=== PATIENT | male | born 1950 | race Caucasian/White ===

== ENCOUNTER 2018-09-03 14:41 | Outpatient (REF) | payer MEDICARE, SELFPAY ==
[2018-09-03 20:04] LABS: HCT 42.3 % (40.0-50.0); HGB 13.6 g/dL (13.5-17.5); Mean Corp. HGB Concentration 32.2 g/dL (32.0-36.0); Mean Corpuscular Hemoglobin 26.1 pg (27.0-33.0); Mean Platelet Volume 11.2 fL (8.0-11.0); Platelet Count 314 x1000/uL (130-400); RBC 5.22 m/cumm (4.50-6.00); RBC Distribution Width 14.7 % (11.8-14.1); White Blood Cell Count 10.12 k/cumm (4.4-10.8)
[2018-09-03 21:00] LABS: Anion Gap 9.7 mmol/L (3-11); BUN 27 mg/dL (7-18); CO2 26.3 mmol/L (21.0-32.0); CREATININE 1.42 mg/dL (0.70-1.30); Calcium 9.8 mg/dL (8.5-10.1); Chloride 106 mmol/L (98-107); Estimated GFR 49.73 (mL/min/1.73m2); Glucose 80 mg/dL (70-100); Potassium 4.4 mmol/L (3.5-5.1); Sodium 142 mmol/L (136-145); Vitamin B12 213 pg/mL (193-986)
[2018-09-05 15:17] LABS: Hepatitis C Ab w Rflx HCV PCR Negative (NEGAT)
== END 2018-09-03 15:01 ==
LOC: NCHCN 14:41
PROVIDERS: PCP Family Medicine; Visit Provider Family Medicine
DX: D51.0 Vitamin B12 deficiency anemia due to intrinsic factor deficiency (principal); I10 Essential (primary) hypertension; Z11.59 Encounter for screening for other viral diseases
CPT/HCPCS: 80048; 85027; 86803; 82607

== ENCOUNTER 2020-04-05 11:58 | Outpatient (REF) | payer MEDICARE, SELFPAY ==
--- NOTE | 2020-04-05 11:00 | SKI_PTH ---
PATIENT: Carlton Loredo LOC: [facility] U#:[id number] AGE/SX: 69/M ROOM: RE04/05/[address]: Carlton Severino : 1950 BED: DIS: 04/05/2020 SPEC #: [id number] RECD: 04/06/20 11:51 STATUS: MALAIKA GODWIN #: [id number] ROSELINE: 04/05/20 11:[address]: Carlton Severino DEPT: Surgical Specimen RECD BY: Nery Pena Tissues: 1 - SKIN BIOPSY(SHAVE/PUNCH) Procedures: SKIN LEVEL 4 Comments: [id number]
== END 2020-04-05 12:18 ==
LOC: NCHCN 11:58
PROVIDERS: PCP Family Medicine; Visit Provider Family Medicine
DX: L82.0 Inflamed seborrheic keratosis (principal)
CPT/HCPCS: 88305

== ENCOUNTER 2021-08-16 22:06 | Outpatient (REF) | payer MEDICARE, SELFPAY ==
[2021-08-16 21:56] LABS: HCT 43.3 % (40.0-50.0); MCH 25.7 pg (27.0-33.0); MCV 85.7 fL (80-95); MPV 11.5 fL (8.0-11.0); Platelet Count 285 10^3/uL (130-400); RBC 5.05 10^6/uL (4.36-5.78); RDW 14.6 % (11.8-14.1); RDW-SD 45.5 fL; WBC 7.45 10^3/uL (4.4-10.8)
[2021-08-16 22:41] LABS: ALT 23 U/L (16-63); AST 12 U/L (15-37); Albumin 3.5 g/dL (3.4-5.0); Alkaline Phosphatase 134 U/L (46-116); Anion Gap 10.4 mmol/L (3-11); BUN 25 mg/dL (7-18); Bilirubin, Total 0.4 mg/dL (0.2-1.0); CO2 23.6 mmol/L (21.0-32.0); CREATININE 1.5 mg/dL (0.70-1.30); Calcium 9.6 mg/dL (8.5-10.1); Chloride 110 mmol/L (98-107); Estimated GFR 46.27 (mL/min/1.73m2); Glucose 103 mg/dL (74-106); Potassium 4.5 mmol/L (3.5-5.1); Sodium 144 mmol/L (136-145); Total Protein 6.9 g/dL (6.4-8.2); Vitamin B12 102 pg/mL (193-986)
== END 2021-08-16 22:07 | disposition home or self-care (01) ==
LOC: NCHCN 22:06
PROVIDERS: PCP Family Medicine; Visit Provider Family Medicine
DX: D51.0 Vitamin B12 deficiency anemia due to intrinsic factor deficiency (principal); N28.9 Disorder of kidney and ureter, unspecified
CPT/HCPCS: 80053; 85027; 82607

== ENCOUNTER 2022-01-16 15:24 | Outpatient (REF) | payer MEDICARE, SELFPAY ==
[2022-01-16 18:55] LABS: Anion Gap 7.3 mmol/L (3-11); BUN 21 mg/dL (7-18); CO2 26.7 mmol/L (21.0-32.0); CREATININE 1.3 mg/dL (0.70-1.30); Calcium 9.4 mg/dL (8.5-10.1); Chloride 110 mmol/L (98-107); Estimated GFR 54.42 (mL/min/1.73m2); Glucose 72 mg/dL (74-106); Potassium 4.7 mmol/L (3.5-5.1); Sodium 144 mmol/L (136-145)
[2022-01-16 19:25] LABS: COMMENT (LAB VIEW ONLY) 147.79 mg/dL; PROTEIN 20.2 mg/dL; Prot/Crea Ur Ratio 0.13
[2022-01-16 19:53] LABS: Bilirubin Negative (Negative); Blood Negative (Negative); Clarity Clear (Clear); Glucose Negative (Negative); Ketones Negative (Negative); Leukocyte Esterase Negative (Negative); Nitrite Negative (Negative); Specific Gravity >= 1.030 (1.005-1.025); Urobilinogen 0.2 EU/dL (Up TO 0.2); pH 5.5 (5-8)
== END 2022-01-16 15:25 | disposition home or self-care (01) ==
LOC: NCHCN 15:24
PROVIDERS: PCP Family Medicine; Visit Provider Family Medicine
DX: N18.31 Chronic kidney disease, stage 3a (principal)
CPT/HCPCS: 80048; 81003; 82565; 84156

== ENCOUNTER 2022-07-16 15:10 | Outpatient (REF) | payer MEDICARE, SELFPAY ==
[2022-07-16 19:02] LABS: HCT 44.1 % (40.0-50.0); HGB 13.4 g/dL (13.5-17.5); MCH 25.4 pg (27.0-33.0); MCHC 30.4 % (32.0-36.0); MCV 84 fL (80-95); Platelet Count 280 10^3/uL (130-400); RBC 5.27 10^6/uL (4.36-5.78); RDW-SD 42.5 fL; WBC 8.86 10^3/uL (4.4-10.8)
[2022-07-16 19:40] LABS: Vitamin B12 386 pg/mL (193-986)
[2022-07-16 21:57] LABS: COMMENT (LAB VIEW ONLY) 210.65 mg/dL; PROTEIN 29.1 mg/dL; Prot/Crea Ur Ratio 0.13
== END 2022-07-16 15:11 | disposition home or self-care (01) ==
LOC: NCHCN 15:10
PROVIDERS: PCP Family Medicine; Visit Provider Family Medicine
DX: I10 Essential (primary) hypertension; N18.31 Chronic kidney disease, stage 3a; D51.0 Vitamin B12 deficiency anemia due to intrinsic factor deficiency
CPT/HCPCS: 85027; 82565; 82607; 84156

== ENCOUNTER 2023-05-20 15:10 | Outpatient (REF) | payer MEDICARE, SELFPAY ==
[2023-05-20 20:26] LABS: HCT 44.5 % (40.0-50.0); HGB 13.8 g/dL (13.5-17.5); MCH 25.9 pg (27.0-33.0); MCV 84 fL (80-95); MPV 11.1 fL (8.0-11.0); Platelet Count 271 10^3/uL (130-400); RBC 5.33 10^6/uL (4.36-5.78); RDW 14.6 % (11.8-14.1); WBC 7.27 10^3/uL (4.4-10.8)
[2023-05-20 21:29] LABS: Anion Gap 12.1 mmol/L (3-11); BUN 21 mg/dL (7-18); CO2 23.9 mmol/L (21.0-32.0); CREATININE 1.4 mg/dL (0.70-1.30); Calcium 10.1 mg/dL (8.5-10.1); Calculated LDL 98 mg/dL (<100); Chloride 104 mmol/L (98-107); Cholesterol 171 mg/dL (<200); Glucose 109 mg/dL (74-106); HDL Cholesterol 55 mg/dL (40-60); Potassium 3.9 mmol/L (3.5-5.1); Sodium 140 mmol/L (136-145); Triglyceride 91 mg/dL (<150); Vitamin B12 424 pg/mL (193-986)
[2023-05-20 21:53] LABS: Iron 40 ug/dL (65-175); Total Iron Binding Capacity 269 ug/dL (250-450); Transferrin Sat 15 % (20-55)
== END 2023-05-20 15:11 | disposition home or self-care (01) ==
LOC: NCHCN 15:10
PROVIDERS: PCP Family Medicine; Visit Provider Family Medicine
DX: N18.31 Chronic kidney disease, stage 3a (principal); D51.0 Vitamin B12 deficiency anemia due to intrinsic factor deficiency; I10 Essential (primary) hypertension; R79.89 Other specified abnormal findings of blood chemistry
CPT/HCPCS: 80048; 80061; 85027; 82607; 83540; 83550

== ENCOUNTER 2024-02-14 13:23 | Emergency (ER) | payer MEDICARE, SELFPAY ==
[2024-02-14 13:27] VITALS: BP 186/104; PULSE 60; RESP 16; TEMP 36.4; O2SAT 97
--- NOTE | 2024-02-14 14:19 | ED.GENADUL_ITS ---
Discharge Plan Disposition Patient Disposition: Home Discharge Details Clinical Impression: Acute left-sided low back pain Primary Care Provider: Carlton Severino ED Provider: Carlton Abarca Home Meds and New Rx's Prescriptions: New lidocaine [Lidoderm] 5 % adhesive patch,medicated 1 patch topical DAILY Qty: 15 0RF Rx Instructions: leave on most painful area for up to 12 hrs diazepam 5 mg tablet 5 mg PO QHS PRNQty: 5 0RF Continued cyanocobalamin (vitamin B-12) 1,000 MCG tablet 1,000 mcg PO DAILY sildenafil [Viagra] 100 MG tablet 100 mg PO PRN hydrochlorothiazide 25 MG tablet 25 mg PO DAILY alum-mag hydroxide-simeth [Mag-Al Plus] 30 ML suspension 15 ml PO AC Qty: 1 2RF Discharge Instructions Instructions: Low Back Pain (DC) Additional Instructions: You are seen in the emergency department for your back pain. Your CAT scan showed no sign of the kidney stone on the left. You have a very small stone in your right kidney which is not causing any blockages. Please return to the emergency department as we discussed if you develop any numbness or tingling between your legs, any loss of bowel or bladder control, or any fevers. Otherwise please follow-up next week as needed with primary care provider. You are receiving a prescription for medicine to treat back spasm. Please do not drive or drink alcohol while taking this medication. For your pain please take medications as follows: 1. Take acetaminophen (Tylenol), 1,000 mg (two 500 mg tabs) every 6 hours Discharge Data Discharge Date/Time-TO BE ENTERED AT DEPARTURE: 02/14/24 16:35 HPI General Date/Time Provider Initiated Documentation: 02/14/24 13:44 . HPI Narrative: MDM This is an overall very well-appearing afebrile and not tachycardic 73-year-old male with left flank pain concerning for ureterallithiasis versus musculoskeletal strain. No pain out of proportion to suggest necrotizing soft tissue infection. No left lower quadrant tenderness nor diarrhea nor fevers so my suspicion is low for diverticulitis. No right lower quadrant tenderness no diarrhea nor fevers making my suspicion low for appendicitis. No rash to back to suggest zoster. Patient is not anticoagulated and has had no recent spinal instrumentation so my suspicion is low for spinal epidural hematoma. No IV drug use nor fevers so doubt spinal epidural abscess. No loss of bowel or bladder control nor saddle anesthesia making my suspicion low for cauda equina syndrome. Left foot warm well-perfused so I am not concerned for critical limb ischemia so I do not feel that the patient required a CT angiogram to assess for aortic pathology. No epigastric tenderness to suggest pancreatitis. No cough hypoxia no shortness of breath so doubt referred pain from pneumonia. No chest pain to suggest PE. No history of malignancy so my suspicion is low for pathological fracture and patient had no midline thoracic nor lumbar spinal tenderness so I did not feel that the patient required thoracic nor lumbar reconstructions. Will attempt treatment with oral diazepam in the event that there is a component of muscle spasm. 3:10 PM Basic metabolic panel showing CKD no TANJA. No acute electrolyte abnormalities. CBC lacks anemia thrombocytopenia and leukocytosis. 4:20 PM I met the patient and his following his reassuring CT scan. He did have right sided nephrolithiasis but no ureterolithiasis nor hydronephrosis. Patient felt improved following diazepam. He already has a referral placed to physical therapy. I counseled him on return to the ED for worsening pain saddle anesthesia loss of bowel or bladder control or any other concerns. He understood his return indications and was discharged with an empiric trial of expectant outpatient management. I prescribed him a short course of diazepam after reviewing his PDMP record where he had no prescriptions. I advised acetaminophen but will defer ibuprofen given CKD and age. Will also treat with Lidoderm patch. HPI This is a 73-year-old male with history of remote ureterolithiasis and hypertension arrived to the emergency department via private vehicle in setting of sore left side of his back which began 5 days ago. Patient reports that he got out of a car after drive. He denies any trauma but suddenly had pain in his left lower back. It radiates down into his left leg where he has some lateral numbness. It also radiates occasionally into his left testicle. He has been attempting treatment at home with acetaminophen and ibuprofen. He is not anticoagulated. No recent spinal surgeries. No routine tobacco nor ethanol. Patient occasionally smokes marijuana but denies IV drug use. He has not recently lost control of his bowels or bladder. No saddle anesthesia. No fevers cough shortness of breath. No abdominal pain nor vomiting. No history of malignancy nor anticoagulation. Patient has occasionally been nauseous. No chest pain. Exam General: Well-appearing in no acute distress speaking in complete sentences. Head: Normocephalic, atraumatic. Eye: Extraocular eye movements intact. No conjunctival injection. No scleral icterus. Ear, nose, mouth, throat: Grossly normal inspection. Normal voice, handling secretions normally. Neck: Trachea midline. Cardiovascular: Well-perfused distal extremities. Regular rate and rhythm. Back: No midline thoracic nor lumbar spinal tenderness. No step-offs. No deformities. Mild left-sided paraspinal muscle tenderness. Respiratory: Nonlabored respiration.Clear lungs bilaterally Gastrointestinal: Nondistended abdomen. Soft nontender. No rebound. No guarding. Musculoskeletal: No edema. Moving all 4 extremities spontaneously. 5 out of 5 bilateral lower extremity strength in dorsi and plantarflexion. 2+ patellar reflexes bilaterally. Bilateral feet warm well-perfused 2+ PT and DP pulses. Skin: Normal for age and race, grossly normal temperature and turgor. No acute rash. Neurologic: Alert and appropriate, no apparent acute deficits. GCS 15. Psychiatric: Mood and manner are appropriate. Grooming and personal hygiene are appropriate. Related Data Home Medications Medication Instructions Recorded Confirmed cyanocobalamin (vitamin B-12) 1,000 mcg PO DAILY 01/11/16 02/14/24 1,000 mcg tablet hydrochlorothiazide 25 mg tablet 25 mg PO DAILY 01/11/16 02/14/24 sildenafil 100 mg tablet (Viagra) 100 mg PO PRN 01/11/16 02/14/24 aluminum-mag hydroxide-simethicone 15 ml PO AC ##1 02/15/16 02/14/24 200 mg-200 mg-20 mg/5 mL oral susp (Mag-Al Plus) diazepam 5 mg tablet 5 mg PO QHS PRN #5 tabs 02/14/24 lidocaine 5 % topical patch 1 patch topical DAILY #15 ea 02/14/24 (Lidoderm) Previous Rx's Medication Instructions Recorded aluminum-mag hydroxide-simethicone 15 ml PO AC ##1 02/15/16 200 mg-200 mg-20 mg/5 mL oral susp (Mag-Al Plus) diazepam 5 mg tablet 5 mg PO QHS PRN #5 tabs 02/14/24 lidocaine 5 % topical patch 1 patch topical DAILY #15 ea 02/14/24 (Lidoderm) Allergies Allergy/AdvReac Type Severity Reaction Status Date / Time oxybutynin Allergy Severe muscle Unverified 02/14/24 13:33 aches my whole inner core felt so bad poison caleb extract Allergy Severe Swelling/Ed Unverified 02/14/24 13:33 misael General Stated Complaint: Nk/Back Pain GOMEZ: 4 Course Vital Signs Vital signs: Vital Signs Temperature 36.4 C L 02/14/24 13:27 Pulse 60 02/14/24 13:27 Respiratory Rate 16 02/14/24 13:27 Blood Pressure 186/104 H 02/14/24 13:27 Pulse Oximetry 97 02/14/24 13:27 Temperature 36.4 C L 02/14/24 13:27 Temperature Source Tympanic 02/14/24 13:27 Pulse 60 02/14/24 13:27 Respiratory Rate 16 02/14/24 13:27 Blood Pressure 186/104 H 02/14/24 13:27 Blood Pressure Position Sitting 02/14/24 13:27 Pulse Oximetry 97 02/14/24 13:27 Oxygen Delivery Method Room Air 02/14/24 13:27 Oxygen Flow Rate 0 02/14/24 13:27 Pain Level 4 02/14/24 13:27 Comment Had ibuprofen early this morning 02/14/24 13:27 Medical Decision Making Quality:SDOH Health Related Social Needs: No Data to Display PFSH All Active Problems (Updated 02/14/24 @ 16:21 by Carlton Abarca MD) Acute left-sided low back pain (Acute) Medical History (Updated 02/14/24 @ 16:21 by Carlton Abarca MD) Lower back pain Atrophic gastritis Cervicalgia Carcinoid tumor Erectile dysfunction History of peptic ulcer Venous stasis dermatitis Insomnia B12 deficiency Carpal tunnel syndrome left Pernicious anemia CKD (chronic kidney disease), stage III Hypertension Nephrolithiasis Vitamin B12 deficiency anemia Migraine PAT (obstructive sleep apnea) Surgical History (Updated 06/11/18 @ 14:35 by [employer]) Vasectomy Colonoscopy - MAC Colectomy sigmoid for diverticulitis Social History Smoking/Tobacco Use Status: Former Tobacco Use Smoking risk assessment performed?: Yes Drug use: Occasionally
--- NOTE | 2024-02-14 14:30 | DI.CT_ITS ---
Exam(s) CT ABDOMEN PELVIS WO EXAM: CT ABDOMEN PELVIS WO CLINICAL HISTORY: Left flank pain radiating to testicle. TECHNIQUE: Imaging Protocol: Axial computed tomography images with coronal and sagittal reformatted images were created and reviewed. Oral: no COMPARISON: CT ABD PELVIS WO CONTRAST from 11/10/2011 FINDINGS: Lung Bases: No acute findings. Heart mildly enlarged. Liver: Normal density. No suspicious mass. Gallbladder and biliary tract: No radiodense calculus or biliary dilation. Pancreas: Normal density. No abnormal calcifications or inflammatory process. Spleen: Normal. Kidneys: Normal size, contour and axis. Tiny nonobstructing stones noted mid right kidney. No obstru ctive uropathy. No suspicious masses seen. Cyst lower pole right kidney. Adrenal glands: No masses seen. Lymph nodes: Within normal limits. Vasculature: Abdominal aorta non-dilated. Atherosclerotic changes. Soft tissues: Unremarkable. Bladder: Unremarkable. Nearly empty. No gross evidence of mass or calculi. Bowel: Diverticulosis. No evidence of diverticulitis. Sigmoid anastomosis. No obstruction or bowel wall thickening. Appendix normal. Peritoneal cavity: No ascites. No focal collection. No mesenteric inflammatory response. Reproductive organs: See mildly enlarged and contains calcifications. Bones: Unremarkable for age. IMPRESSION: Small nonobstructing stone in the right kidney. No ureteral or bladder calculi. No hydronephrosis. RADIATION DOSE DELIVERED: 1,015.55mGy.cm Total DLP DATA REPOSITORY: All CT scans at this facility are submitted to the National Radiology Data Registry (NRDR) Dose Index Registry (DIR) with the [employer] ([employer]). RADIATION OPTIMIZATION: All CT scans at this facility use at least one of these dose optimization te chniques: automated exposure control; mA and/or kV adjustment per patient size (includes targeted exa ms where dose is matched to clinical indication); or iterative reconstruction.
[2024-02-14] MEDS: Normal Saline 500 ML IV (14:52)
[2024-02-14 14:53] LABS: Abs Immature Grans 0.02 10^3/uL (0.0-0.06); Absolute Basophil Count 0.04 10^3/uL (0.0-0.2); Absolute Lymphocyte Count 0.99 10^3/uL (1.2-3.4); Absolute Monocyte Count 0.57 10^3/uL (0.1-0.8); Absolute Neutrophil Count 5.67 10^3/uL (1.2-6.7); Basophils % 0.5 %; Eosinophils % 2.7 %; HCT 45.8 % (40.0-50.0); HGB 14.5 g/dL (13.5-17.5); Immature Grans % 0.3 %; Lymphocytes % 13.2 %; MCH 26.2 pg (27.0-33.0); MCHC 31.7 % (32.0-36.0); MCV 83 fL (80-95); MPV 10.4 fL (8.0-11.0); Monocytes % 7.6 %; Neutrophils % 75.7 %; Platelet Count 292 10^3/uL (130-400); RBC 5.54 10^6/uL (4.36-5.78); RDW 14.2 % (11.8-14.1); RDW-SD 42.5 fL; WBC 7.49 10^3/uL (4.4-10.8)
[2024-02-14] MEDS: diazePAM 5 MG TAB PO (14:53)
[2024-02-14 15:02] LABS: Anion Gap 8.3 mmol/L (3-11); BUN 22 mg/dL (7-18); CO2 26.7 mmol/L (21.0-32.0); CREATININE 1.5 mg/dL (0.70-1.30); Chloride 106 mmol/L (98-107); Estimated GFR 48.85 (mL/min/1.73m2); Glucose 101 mg/dL (74-106); Potassium 4.2 mmol/L (3.5-5.1); Sodium 141 mmol/L (136-145)
[2024-02-14 16:01] VITALS: BP 161/74; PULSE 64; RESP 18; O2SAT 96
[2024-02-14] MEDS: Acetaminophen 500 MG TAB 1000 MG PO (16:34)
[2024-02-14] MEDS: Lidocaine 5% Patch 1 PATCH TP (16:34)
== END 2024-02-14 16:35 | disposition home or self-care (01) ==
PROVIDERS: Emergency Provider Emergency Medicine; PCP Family Medicine
DX: M54.50 Low back pain, unspecified (principal); N20.0 Calculus of kidney; I12.9 Hypertensive chronic kidney disease with stage 1 through stage 4 chronic kidney disease, or unspecified chronic kidney disease; N18.30 Chronic kidney disease, stage 3 unspecified
CPT/HCPCS: 80048; 96360; 99284; 74176; 85025

== ENCOUNTER 2024-10-16 15:09 | Outpatient (REF) | payer MEDICARE, SELFPAY ==
[2024-10-16 21:16] LABS: Abs Immature Grans 0.03 10^3/uL (0.0-0.06); Absolute Basophil Count 0.06 10^3/uL (0.0-0.2); Absolute Eosinophil Count 0.14 10^3/uL (0.0-0.7); Absolute Lymphocyte Count 1.01 10^3/uL (1.2-3.4); Absolute Monocyte Count 0.61 10^3/uL (0.1-0.8); Absolute Neutrophil Count 7.06 10^3/uL (1.2-6.7); Basophils % 0.7 %; Eosinophils % 1.6 %; HCT 43.8 % (40.0-50.0); HGB 13.2 g/dL (13.5-17.5); Immature Grans % 0.3 %; Lymphocytes % 11.3 %; MCH 25.1 pg (27.0-33.0); MCHC 30.1 % (32.0-36.0); MCV 83 fL (80-95); MPV 11.3 fL (8.0-11.0); Monocytes % 6.8 %; Neutrophils % 79.3 %; Platelet Count 288 10^3/uL (130-400); RBC 5.25 10^6/uL (4.36-5.78); RDW 14.7 % (11.8-14.1); RDW-SD 44.7 fL; WBC 8.91 10^3/uL (4.4-10.8)
[2024-10-16 22:07] LABS: Vitamin B12 160 pg/mL (193-986)
[2024-10-16 22:16] LABS: COMMENT (LAB VIEW ONLY) 110.83 mg/dL; Microalb ug/mg Crea 234.3 ug/mg Cr
== END 2024-10-16 15:10 | disposition home or self-care (01) ==
LOC: NCHCN 15:09
PROVIDERS: PCP Family Medicine; Visit Provider Student in an Organized Health Care Education/Training Program
DX: I10 Essential (primary) hypertension (principal)
CPT/HCPCS: 82043; 82570; 82607; 85025

== ENCOUNTER 2024-11-17 13:11 | Outpatient (REF) | payer MEDICARE, SELFPAY ==
[2024-11-17 15:49] LABS: Anion Gap 9.6 mmol/L (3-11); BUN 21 mg/dL (7-18); CO2 26.4 mmol/L (21.0-32.0); CREATININE 1.4 mg/dL (0.70-1.30); Chloride 111 mmol/L (98-107); Estimated GFR 52.74 (mL/min/1.73m2); Glucose 112 mg/dL (74-106); Potassium 4.3 mmol/L (3.5-5.1); Sodium 147 mmol/L (136-145)
== END 2024-11-17 13:12 | disposition home or self-care (01) ==
LOC: NCHCN 13:11
PROVIDERS: PCP Family Medicine; Visit Provider Student in an Organized Health Care Education/Training Program
DX: I10 Essential (primary) hypertension (principal)
CPT/HCPCS: 80048